=== PATIENT | male | born 1965 | race Caucasian/White ===

== ENCOUNTER → 2020-02-02 | Outpatient (CLI) | payer MEDICARE ==
[~2020-02-02] MED LIST: ASA81BEC PO; CIPRO500 M1 PO; DILAUDID 2 MG TA2 MG PO; FLAGYL500 MG PO; FLOMAX0.4 MG PO; MS CONTIN15 MG PO; NARCAN4 MG NARES; NEURONTIN100 MG PO; PRILOSEC 20 MG20 MG PO; PROZAC20 MG PO; SIMVASTATIN40 MG PO; ZYRTEC10 M4 PO
--- NOTE | 2020-02-24 08:28 | PAINCON ---
[address] [address] PAIN MANAGEMENT CONSULTATION Name: ERASMO CAMERON JR Room: [facility] Sidra#: [id number] Admission: 02/02/20 Attend Phys: Moreno Ervin MD Discharge: Date of : 65 Report #: [id number] THIS REPORT FOR: //name// cc: Aakash Morris MD, David M. MD ~ THIS REPORT FOR: //name// CC: Aakash Ervin DATE OF SERVICE: 02/02/2020 CHIEF COMPLAINT: Low back pain. HISTORY: The patient is a 54-year-old gentleman who has been referred to the pain clinic for evaluation of low back and leg pain. He finds it is difficult to sleep on his hips on his side. Pain is more problematic on the left hip area than the right. He has been using gabapentin, which has decreased some of the burning. He does have a history of scoliosis. The patient has been on a regimen of morphine and Dilaudid, which have been helpful. He has been on a regimen of pain medications to control his discomfort since 2000. He had a fusion of his low back area because of scoliosis in 1982. He has Will rods placed. In 1998, one of the rods broke. He then had additional surgery. Had another fusion in 2000. Continues to have some pain in his back and notes some weakness in his legs. He feels that the pain medications are helpful. He feels his pain is about 50-60% improved with his current regimen. Does note that activity as well as changes in the weather can exacerbate his discomfort. He finds that use of his medications in conjunction with rest are beneficial. He is not having any significant problems with bowel or bladder function. He has had a reduction in his opioid daily dose. He has noticed some increased discomfort since that decrease in medication, but still finds his pain tolerable. He describes it as steady, periodic, burning, cramping, aching, pulling, intermittent, gnawing and sharp. Rates his pain as a 3-4/10 today. Oftentimes, it averages 5-7 depending on his activity level. The patient feels that his medications are helpful. He would like to continue with them at this juncture. He is aware of the changing guidelines with the CDC regarding chronic use of opioid medications. ALLERGIES: No known drug allergies. CURRENT MEDICATIONS: Dilaudid 4 mg b.i.d. to t.i.d., morphine decreased from 100 mg b.i.d. about 3 months ago to 60 mg b.i.d., gabapentin 300 mg b.i.d., simvastatin 40 mg, fluoxetine 20 mg, 81 mg aspirin, PAST MEDICAL HISTORY: Acute pancreatitis in the past, alcoholism, hematuria, colitis, enlarged prostate, [place] [address] PAIN MANAGEMENT CONSULTATION Name: ERASMO CAMERON JR Room: [facility]#: [id number] Admission: 02/02/20 Attend Phys: Moreno Ervin MD Discharge: Date of : 65 Report #: [id number] PAST SURGICAL HISTORY: Back fusion with hardware 2000, back surgery with removal of broken margarita 1998, hardware with fusion of the spine 1982, tonsillectomy, left hand surgery, left eye surgery. Tonsil and ear tubes 1969, 1991 eye injury to the lid with tear of the tears ducts, 1995 hand injury of left index finger. REVIEW OF SYSTEMS: Generally good health, fever, night sweats, fatigue, weakness, eye injury, wears glasses, blurred vision, chronic sinus problems, shortness of breath when walking, constipation, frequent urination, past transfusions, memory loss, depression, insomnia, head injury, numbness and tingling sensation, difficulty walking, back pain, muscle pain, cramping, weakness of muscles and joints, excessive thirst. LABORATORY DATA: No new laboratory values are available at the time of our interview. PAIN CLINIC ASSESSMENT AND PQRS: 1. Height 5 feet 9 inches, weight 183 pounds, BMI is 27.3. 2. Vital signs: Blood pressure 118/63, heart rate 119, respiratory rate 18, room air saturation is 90%, temperature 98.2. 3. Osteoarthritic changes involving his back with numerous surgeries. 4. The patient is not being treated for rheumatoid arthritis. 5. Pain intensity, 3-4/10. 6. Fall history. The patient has not fallen in the last 3 months. 7. Blood thinner. The patient is not on a blood thinning medication. 8. Hypertension. The patient is not being treated for hypertension. 9. Opioids greater than 6 weeks. The patient receives medication from one source, his primary physician. 10. Risk assessment tool, moderate for opioid use. 11. Functional assessment tool, 35/70 showing moderate impact of pain in his daily life. PHYSICAL EXAMINATION: GENERAL: The patient is alert and oriented x 3. His affect is appropriate. Speech is fluent. HEENT: Normocephalic, atraumatic. Extraocular eye muscles intact. Sclerae nonicteric. Mucous membranes are moist. NECK: Without adenopathy or JVD. HEART: Regular rate. LUNGS: Clear. ABDOMEN: Nontender. MUSCULOSKELETAL: Upper extremity muscle strength judged to be 5/5 for the major muscle groups in the upper extremity. The patient has an incision from about the mid back to the lower portion of his lumbar spine. It is well healed. [facility] [address] [place] [address] PAIN MANAGEMENT CONSULTATION Name: ERASMO CAMERON JR Room: [facility]#: [id number] Admission: 02/02/20 Attend Phys: Moreno Ervin MD Discharge: Date of : 65 Report #: [id number] There is little movement in this area. Lower extremity muscle strength judged to be 5/5 for the major muscle groups in the lower extremity. Left lateral bending, right lateral bending, lumbar extension are all significantly limited secondary to the patient's fusion and rods in the lumbar spine. The patient states that he had a curvature of about 60 and 26 in the thoracic area, 20 degrees in the lumbar area before his surgery. IMPRESSION: 1. Chronic pain, status post 3 back surgeries with rods and screws placed to stabilize the spine. 2. Acute pancreatitis in the past. 3. Alcoholism. 4. Hematuria. 5. Colitis. RECOMMENDATIONS: We discussed the treatment with the patient. Again, we reviewed the CDC rules. The CDC would like the patient to be in the range of 90, morphine equivalents per day. That is a goal to shoot at. The patient has had a decrease in his morphine equivalents. He was at approximately 250 morphine equivalents about 3 months ago prior to decreasing his morphine from 100 mg daily b.i.d. to 60 mg daily. His total morphine equivalents at this juncture has been 60 mg morphine b.i.d. and 12 mg hydromorphone and up to about 168 morphine equivalents. Hydromorphone version into morphine is 4 times the milligrams that would make 4 x 12 48 mg and 1 morphine equivalent per mg, which would be 120, adding together would be 168 mg. I would recommend that the patient does have a Narcan spray. The Narcan comes in an injectable form, which would be screwed in his nose should there be respiratory depression. We also explained to the patient that other family members could possibly get hold of his medications. Should he find that another family member appeared to be having some respiratory problems and he had the belief that they had taken his medication, he would use the Narcan spray for them. The patient is aware that his medication should be locked up at all times. States that he does keep his medications in a guarded area. I would think at this point that his medications seem to be working reasonably well. There is no question that if he also has continued to have more discomfort as one, would decrease his opioid use. Over a period of time, I think approaching 120 mg of morphine if he is able to tolerate it, would be a goal. There were no set amounts of medications for the patients, but the CDC has set a goal of lower than 90 mg if the patient is able to function at that level. We have patients on the contracts indicating that they will take their medications as prescribed. One of our requirements is that the patient not drinks. The patient states that he drinks 1-2 alcoholic beverages per day. We would strongly recommend that he not drink on a regular basis. I think at this current level, one could continue with his current medical regimen. If he should have any concerns, we can see the patient again in the pain clinic [address] [address] PAIN MANAGEMENT CONSULTATION Name: ERASMO CAMERON JR [facility] [id number] Admission: 02/02/20 Attend Phys: Moreno Ervin MD Discharge: Date of : 65 Report #: [id number] in the future. We would like to thank you for letting us participate in his care. We hope he continues to improve. <ELECTRONICALLY SIGNED> By: Moreno Ervin MD 02/24/20 0828 0032 [id number]. Geoff Ervin MD /[facility]
== END ==
LOC: M.PC 09:13
DX: G89.29 Other chronic pain (principal); R31.9 Hematuria, unspecified; K52.9 Noninfective gastroenteritis and colitis, unspecified; F10.20 Alcohol dependence, uncomplicated; Z79.891 Long term (current) use of opiate analgesic

== ENCOUNTER → 2021-02-08 | Outpatient (CLI) | payer MEDICARE ==
[~2021-02-08] MED LIST changes: +COREG6.25 MG PO; +COZAAR 50 MG TA50 M1 PO; +LASIX 20 MG TAB20 MG PO; +PROTONIX40 M2 PO; +SPIRONOLACTONE25 MG PO
[2021-02-08 12:24] LABS: CALCIUM 9.8 mg/dL (8.5-10.1); CREATININE 0.9 mg/dL (0.6-1.3); POTASSIUM 4.1 mmol/L (3.5-5.1)
== END ==
LOC: M.LAB 12:00
PROVIDERS: ATTEND Registered Nurse
DX: I50.23 Acute on chronic systolic (congestive) heart failure (principal)

== ENCOUNTER → 2021-02-19 | Outpatient (CLI) | payer MEDICARE ==
--- NOTE | 2021-03-12 08:43 | SLEEP ---
[address] [address] SLEEP STUDY REPORT Name: ERASMO CAMERON JR Room: [facility]#: [id number] Admission: 02/19/21 Attend Phys: Tommy Du MD Discharge: Date of : 65 Report #: [id number] THIS REPORT FOR: cc: Aakash Morris MD, David M. MD Pervez,Tommy KING ~ This study has been reviewed in its entirety by a board certified sleep specialist DATE OF SERVICE: 02/19/2021 SLEEP STUDY INDICATION FOR SLEEP STUDY: Obstructive sleep apnea, recently diagnosed based on a home sleep study performed through [facility]. This sleep study is being performed for positive airway pressure titration. INTERPRETATION: Total duration of the study is 429 minutes. During this time duration, the patient was asleep for 353 minutes with an overall sleep efficiency of 82%. Sleep onset initially occurred 6 minutes after lying down in bed and REM onset occurred 151 minutes after sleep onset. N1 sleep duration was 6%, N2 duration was 36%, N3 duration is 13%, and REM duration was 43%. Mean heart rate during the sleep study was 94. Periodic limb movement index was elevated to 44.6. Most limb movements, however, are not associated with arousals. Periodic limb movement index with arousals was 3.4. Overall, arousal index was mildly elevated to 23. This is a CPAP titration. Review of the CPAP titration indicates the patient was titrated beginning with a CPAP pressure of 5 cm of water, gradually increasing it to 11 cm of water. With the administration of a CPAP of 11 cm of water, there is marked improvement in the patient's sleep apnea noted. O2 saturation is also mostly maintained at or above 88%. Occasional desaturation come up to 86% and occasional hypopneas, however, continued to occur and complete correction of the patient's sleep disordered respiration was not noted. The patient is also noted, based on the body position data, lying either on the right or left side throughout the sleep study. There is essentially no supine sleep recorded. IMPRESSION: Obstructive sleep apnea diagnosed based on a recent home sleep study through [facility]. During the sleep study, there is marked improvement noted with the administration of a CPAP of 11 cm of water. Complete correction of the patient's sleep disordered respirations, however, [place] [address] SLEEP STUDY REPORT Name: ERASMO CAMERON JR Room: [facility]#: [id number] Admission: 02/19/21 Attend Phys: Tommy Du MD Discharge: Date of : 65 Report #: [id number] occur. There are occasional hypopneas still occurring. There are occasional desaturations up to 86% also still occurring. There is periodic limb movement disorder noted. Most limb movements, however, are not associated with arousals. RECOMMENDATIONS: 1. I recommend placing the patient on a CPAP of 11 cm of water with heated humidity and mask per the patient's preference while asleep. During the sleep study, a ResMed AirFit F20 full face mask, size medium, with a C-Flex of 3 was used. 2. Once the patient has become accustomed to the use of CPAP, I will plan to perform a nocturnal pulse oximetry with the CPAP in place to verify that O2 saturation is adequately maintained with the CPAP in place. 3. In case the patient is not adequately controlled with this CPAP therapy, then I will plan in a few months to bring the patient back to the Sleep Lab and repeat a positive airway pressure titration in the lab later on. 4. Recommend avoiding use of alcohol. 5. Recommend continuing to sleep on sides and avoid sleeping supine. 6. Recommend avoiding driving or other activities requiring vigilance if drowsy. This entire sleep study was reviewed by board certified sleep physician. <ELECTRONICALLY SIGNED> By: Tommy Du MD 03/12/21 0843 [id number] 2014Ayvonne Du MD /nt
== END ==
LOC: M.SLEEPLAB 20:55
PROVIDERS: ATTEND Internal Medicine Critical Care Medicine
DX: G47.33 Obstructive sleep apnea (adult) (pediatric) (principal); I50.9 Heart failure, unspecified

== ENCOUNTER 2021-03-20 10:43 | Inpatient (IN) | payer MEDICARE ==
[~2021-03-20] VITALS: Ht 175.3 cm; Wt 77.1 kg
[2021-03-20 10:51] VITALS: BP 107/74
[2021-03-20] MEDS ORDERED: POTASSIUM600 MG PO (10:56)
[2021-03-20] MEDS ORDERED: PROAIR HFA8.5 GM INH (10:57)
[2021-03-20] MEDS ORDERED: INCRUSE ELLI62.5 MCG INH (10:58)
[2021-03-20 11:11] LABS: ICTOTEST (BILI CONFIRMATORY) Negative (Negative); URINE BILIRUBIN 1+ (Negative); URINE BLOOD NEGATIVE (Negative); URINE CLARITY CLEAR; URINE COLOR YELLOW; URINE GLUCOSE-RANDOM NEGATIVE (Negative); URINE KETONES 1+ (Negative); URINE LEUKOCYTES-REFLEX NEGATIVE (Negative); URINE NITRITE-REFLEX NEGATIVE (Negative); URINE PROTEIN 1+ (Negative)
[2021-03-20 11:19] LABS: BACTERIA-REFLEX 1-9 Few /HPF (None Seen); CASTS None Seen /LPF (None Seen); CRYSTALS None Seen /LPF (None Seen); SQUAMOUS 0-3 Few /LPF (0-3); URINE RBC 0-2 Rare /HPF (0-2); URINE WBC-REFLEX 0-5 Rare /HPF (0-5)
[2021-03-20 11:22] LABS: ABSOLUTE LYMPHOCYTES 0.6 thou/uL (0.8-5.3); ABSOLUTE MONOCYTES 1.1 thou/uL (0.0-1.2); ABSOLUTE NEUTROPHILS 6.6 thou/uL (1.6-8.1); BASOPHILS 0.6 %; EOSINOPHILS 0.5 %; HEMOGLOBIN 16.5 gm/dL (14.0-18.0); LYMPHOCYTES 6.9 %; MCH 30.6 pg (26.0-34.0); MCHC 33.7 g/dL (28.0-37.0); MPV 6.8 fl. (7.2-11.1); NUCLEATED RBCS 0 /100WBC; PLATELET COUNT* 227 thou/uL (150-400); RBC 5.38 mil/uL (4.50-6.00); RDW-CV 14.6 % (10.5-14.5); WBC 8.4 thou/uL (4.0-11.0)
[2021-03-20 11:32] LABS: CALCIUM 9.1 mg/dL (8.5-10.1); CREATININE 0.5 mg/dL (0.6-1.3); POTASSIUM 3.1 mmol/L (3.5-5.1)
[2021-03-20 11:37] LABS: ALBUMIN 3.7 g/dL (3.4-5.0); TOTAL BILIRUBIN 0.9 mg/dL (<0.1-1.0); TOTAL PROTEIN 7.6 g/dL (6.4-8.2)
[2021-03-20 17:00] VITALS: BP 126/80
[2021-03-20 17:34] VITALS: BP 126/80
[2021-03-20 17:45] VITALS: BP 119/91
--- NOTE | 2021-03-20 18:12 | NUR ---
1745 PT RECEIVED TO 203 PER CART FROM ER ACCOMPANIED BY MOTHER. ORIENTED TO ROOM AND HOSPITAL. PT IS NPO.
[2021-03-20 20:00] VITALS: BP 132/85
[2021-03-20 23:55] VITALS: BP 123/79
--- NOTE | 2021-03-21 01:06 | NUR ---
PT ALERT ORIENTED ANXIOUS. CIWA SCORE 8 AND 9. ATIVAN GIVEN. FENTANYL GIVEN FOR ABD PAIN. PT STATED THAT FENTANYL DID NOT HELP WITH PAIN. PT IS ON MS CONTINE ER 15MG Q 12HR AT HOME. DR MARTINEZ NOTIFIED AND PT PLACED BACK ON MS CONTINUE. ALSO AN INCREASE IN FENTANYL DOSE. PT RESTING COMFORTABLY. TELEMETRY SHOWS SR.
[2021-03-21 04:30] LABS: HEMOGLOBIN 14.8 gm/dL (14.0-18.0); MCH 30.6 pg (26.0-34.0); MCHC 32.9 g/dL (28.0-37.0); MCV 93.1 fL (80.0-100.0); MPV 7.1 fl. (7.2-11.1); PLATELET COUNT* 191 thou/uL (150-400); RBC 4.83 mil/uL (4.50-6.00); RDW-CV 15.3 % (10.5-14.5); WBC 6.5 thou/uL (4.0-11.0)
[2021-03-21 04:42] VITALS: BP 116/82
[2021-03-21 04:46] LABS: ALBUMIN 3.1 g/dL (3.4-5.0); CALCIUM 8.2 mg/dL (8.5-10.1); CREATININE 0.5 mg/dL (0.6-1.3); MAGNESIUM 1.4 mg/dL (1.8-2.4); TOTAL BILIRUBIN 1.2 mg/dL (<0.1-1.0); TOTAL PROTEIN 6.5 g/dL (6.4-8.2)
[2021-03-21 07:54] VITALS: BP 125/86
[2021-03-21 11:49] LABS: ABSOLUTE EOSINOPHILS 0.4 thou/uL (0.0-0.7); ABSOLUTE LYMPHOCYTES 0.9 thou/uL (0.8-5.3); ABSOLUTE NEUTROPHILS 4.1 thou/uL (1.6-8.1); BASOPHILS 0.7 %; EOSINOPHILS 6.5 %; LYMPHOCYTES 14.2 %; MONOCYTES 15.1 %; POLYS 63.5 %
[2021-03-21 11:56] VITALS: BP 132/91
--- NOTE | 2021-03-21 12:32 | NUR ---
Pt is A&O. Resides at home. Independent. No DME. No hx of HH or SNF. Goal is home at dc, no needs anticipated. Plan to replete electrolytes today, anticipate dc in a few days.
[2021-03-21 15:59] LABS: CALCIUM 8.9 mg/dL (8.5-10.1); CREATININE 0.4 mg/dL (0.6-1.3); MAGNESIUM 1.8 mg/dL (1.8-2.4); POTASSIUM 3.5 mmol/L (3.5-5.1)
[2021-03-21 17:35] VITALS: BP 131/95
--- NOTE | 2021-03-21 18:19 | NUR ---
TREAT CIWA SCORE WITH ATIVAB AND PT REMAINS NPO. CONTINUE CURRENT PLAN OF CARE.
[2021-03-21 20:00] VITALS: BP 125/53
[2021-03-22] VITALS: BP 147/92
--- NOTE | 2021-03-22 03:15 | NUR ---
PT SLEEPY EASILY AROUSABLE ORIENTED X 4. MS CONTIN (SCHEDULED) AND FENTNEYL PRN FOR PAIN. O2 AT 2 LITERS NC. 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 CIWA 2. NS AT 200MLS/HR.
[2021-03-22 03:52] LABS: ALBUMIN 3.1 g/dL (3.4-5.0); CALCIUM 8.7 mg/dL (8.5-10.1); CREATININE 0.4 mg/dL (0.6-1.3); POTASSIUM 3.2 mmol/L (3.5-5.1); TOTAL BILIRUBIN 1.5 mg/dL (<0.1-1.0); TOTAL PROTEIN 6.7 g/dL (6.4-8.2)
[2021-03-22 04:00] VITALS: BP 143/92
[2021-03-22 10:28] VITALS: BP 143/92
--- NOTE | 2021-03-22 11:21 | 2DMMODE ---
[place] [address] 2 D/M-MODE ECHOCARDIOGRAM Name: ERASMO CAMERON JR Room: [address] IN [facility]#: [id number] Admission: 03/20/21 Attend Phys: Rony Baker, Discharge: Date of : 65 Date of Service: 03/22/21 1121 Report #: [id number] THIS REPORT FOR: cc: Aakash Morris MD, David M. MD Holkins,Ravindra Espinoza MD [facility] ~ APPROVED REPORT Study performed: 03/21/2021 15:30:05 EXAM: Comprehensive 2D, Doppler, and color-flow Echocardiogram Patient Location: In-Patient Room #: [facility] Status: routine BSA: 1.93 HR: 100 bpm BP: 132/91 mmHg Rhythm: NSR Other Information Study Quality: Good Indications Congestive Heart Failure 2D Dimensions IVSd: 10.99 (7-11mm) LVOT Diam: 22.11 (18-24mm) LVDd: 58.05 mm PWd: 8.27 (7-11mm) Ascending Ao: 31.85 (22-36mm) LVDs: 53.49 (25-40mm) Aortic Root: 37.45 mm Volumes Left Atrial Volume (Systole) LA ESV Index: 33.30 mL/m2 Aortic Valve AoV Peak Negrito.: 1.11 m/s AO Peak Gr.: 4.95 mmHg LVOT Max P.31 mmHg AO Mean Gr.: 3.03 mmHg LVOT Mean P.21 mmHg LVOT Max V: 0.76 m/s AO V2 VTI: 15.35 cm LVOT Mean V: 0.51 m/s LURDES (VTI): 2.74 cm2 LVOT V1 VTI: 10[place] [address] 2 D/M-MODE ECHOCARDIOGRAM Name: ERASMO CAMERON JR Room: [address] ..#: [id number] Admission: 03/20/21 Attend Phys: Rony Baker, Discharge: Date of : 65 Date of Service: 03/22/21 1121 Report #: [id number] TDI Lateral E' Negrito.: 0.08 m/s Pulmonary Valve PV Peak Negrito.: 0.76 m/s PV Peak Gr.: 2.33 mmHg Left Ventricle Left ventricle is mildly dilated. There is global hypokinesis of the left ventricle. There is normal left ventricular wall thickness. Left ventricular ejection fraction is moderate to severely decreased. LVEF is 25-30%. Grade I - abnormal relaxation pattern. Right Ventricle The right ventricle is normal size. The right ventricular systolic function is normal. Atria The left atrium size is normal. The right atrium size is normal. Aortic Valve The aortic valve is normal in structure. No aortic regurgitation is present. There is no aortic valvular stenosis. Mitral Valve The mitral valve is normal in structure. Trace mitral regurgitation. No evidence of mitral valve stenosis. Tricuspid Valve The tricuspid valve is normal in structure. Trace tricuspid regurgitation. Pulmonic Valve The pulmonary valve is normal in structure. There is no pulmonic valvular regurgitation. Great Vessels The aortic root is normal in size. IVC is normal in size and collapses >50% with inspiration. Pericardium There is no pericardial effusion. <Conclusion> Left ventricle is mildly dilated. There is normal left [place] [address] 2 D/M-MODE ECHOCARDIOGRAM Name: ERASMO CAMERON JR Room: [address]#: [id number] Admission: 03/20/21 Attend Phys: Rony Baker, Discharge: Date of : 65 Date of Service: 03/22/21 1121 Report #: [id number] Left ventricular ejection fraction is moderate to severely decreased. LVEF is 25-30%. Grade I - abnormal relaxation pattern. The right ventricle is normal size. The left atrium size is normal. The aortic valve is normal in structure. The mitral valve is normal in structure. The tricuspid valve is normal in structure. IVC is normal in size and collapses >50% with inspiration. There is no pericardial effusion. There is global hypokinesis of the left ventricle. <ELECTRONICALLY SIGNED> By: Ravindra Chowdhury MD, FACC 03/22/21 112 112 112 Ravindra Chowdhury MD, FACC /INF
--- NOTE | 2021-03-22 13:35 | NUR ---
Pt may leave ama, if not anticipate dc in a few days.
--- NOTE | 2021-03-22 16:31 | NUR ---
CONTACT DR. NORRIS TO INFORM THAT PT WISHES TO LEAVE HOSPITAL AMA. SHE INFORMED ME THAT IT WAS OK BUT PT IS TO HAVE SOMEONE COME AND PICK HIM UP AND NOT DRIVE. DC IV AND TELE. PT'S RIDE IS HERE AND PT AMA AT 1640.
== END 2021-03-22 16:40 | disposition left against medical advice (07) | DRG 439 ==
LOC: M.ERS 10:43 → M.TBA-ER 12:34 → M.2W 12:34 → M.TBA-ER 13:01 → M.2W 17:36
PROVIDERS: Internal Medicine; Nurse Practitioner Family; ADMIT Internal Medicine; ATTEND Internal Medicine
DX: K85.21 Alcohol induced acute pancreatitis with uninfected necrosis (principal); E44.0 Moderate protein-calorie malnutrition; E87.1 Hypo-osmolality and hyponatremia; F10.239 Alcohol dependence with withdrawal, unspecified; Z20.822 Contact with and (suspected) exposure to COVID-19; F17.210 Nicotine dependence, cigarettes, uncomplicated; E78.5 Hyperlipidemia, unspecified; E87.6 Hypokalemia; E83.42 Hypomagnesemia; E86.9 Volume depletion, unspecified; F10.229 Alcohol dependence with intoxication, unspecified; G89.29 Other chronic pain; Z79.891 Long term (current) use of opiate analgesic; Z53.29 Procedure and treatment not carried out because of patient's decision for other reasons; Z68.25 Body mass index [BMI] 25.0-25.9, adult

== ENCOUNTER → 2021-04-25 | Outpatient (CLI) | payer MEDICARE ==
[~2021-04-25] MED LIST changes: +INCRUSE ELLI62.5 MCG INH; +POTASSIUM600 MG PO; +PROAIR HFA8.5 GM INH
[2021-04-25 11:25] LABS: CREATININE 0.5 mg/dL (0.6-1.3)
--- NOTE | 2021-05-06 15:22 | PF ---
[address] [address] PULMONARY FUNCTION REPORT Name: ERASMO CAMERON JR Room: [facility]#: [id number] Admission: 04/25/21 Attend Phys: Tommy Du MD Discharge: Date of : 65 Report #: [id number] THIS REPORT FOR: cc: Aakash Morris MD, David M. MD Pervez,Tommy KING ~ DOC #: [id number] Tommy Du MD DATE OF VISIT: 04/25/2021 PULMONARY FUNCTION TEST The FEV1/FVC ratio is decreased to 57% with an FVC normal at 92%. FEV1 is decreased to 68%. FEF 25-75 is also decreased to 29%. After the administration of a bronchodilator, there is no significant increase in any of these values. The patient's post-bronchodilator FEV1 is 2.49 liters. The patient's flow volume loop is concave upwards. LUNG VOLUMES: The total lung capacity is normal at 100%, residual volume while within the normal range, close to the upper limit of normal range at 114%. The DLCO as adjusted for hemoglobin is decreased to 56%. IMPRESSION: 1. Moderate obstruction without evidence of reversibility. 2. Lung volumes are normal, but the residual volume is close to the upper limit of normal range, likely due to underlying obstruction. 3. DLCO decreased to 56% as adjusted for hemoglobin. MD ANGELIQUE Rivera/KEN <ELECTRONICALLY SIGNED> By: Tommy Du MD 05/06/21 1522 0614 0829Tommy Du MD /nt
== END ==
LOC: M.LAB 02-28 15:11 → M.CT 03-28 11:30 → M.PUL 03-28 12:00 → M.LAB 10:58
PROVIDERS: ATTEND Internal Medicine Critical Care Medicine
DX: J43.9 Emphysema, unspecified (principal); K86.89 Other specified diseases of pancreas; K76.0 Fatty (change of) liver, not elsewhere classified; M40.294 Other kyphosis, thoracic region; M47.814 Spondylosis without myelopathy or radiculopathy, thoracic region; I50.22 Chronic systolic (congestive) heart failure

== ENCOUNTER → 2021-05-23 | Outpatient (CLI) | payer MEDICARE ==
[2021-05-23 14:33] LABS: ALBUMIN 3.6 g/dL (3.4-5.0); CALCIUM 9.2 mg/dL (8.5-10.1); CREATININE 1.1 mg/dL (0.6-1.3); POTASSIUM 4.2 mmol/L (3.5-5.1); TOTAL BILIRUBIN 0.7 mg/dL (<0.1-1.0); TOTAL PROTEIN 7.7 g/dL (6.4-8.2)
== END ==
LOC: M.LAB 14:07
PROVIDERS: ATTEND Registered Nurse
DX: I42.0 Dilated cardiomyopathy (principal)

== ENCOUNTER → 2021-06-11 | Outpatient (CLI) | payer MEDICARE ==
[2021-06-11 10:49] LABS: CREATININE 0.7 mg/dL (0.6-1.3); POTASSIUM 4.8 mmol/L (3.5-5.1)
[2021-06-11 14:44] LABS: AMYLASE 25 U/L (25-115); LIPASE 250 U/L (73-393)
== END ==
LOC: M.LAB 10:29
PROVIDERS: ATTEND Registered Nurse
DX: I42.0 Dilated cardiomyopathy (principal); I50.42 Chronic combined systolic (congestive) and diastolic (congestive) heart failure; R10.9 Unspecified abdominal pain

== ENCOUNTER 2021-07-03 17:14 | Emergency (ER) | payer MEDICARE ==
[~2021-07-03] VITALS: Ht 175.3 cm; Wt 75.8 kg
[2021-07-03] MEDS ORDERED: ENTRESTO 24 MG1 EACH PO (17:21)
[2021-07-03] MEDS ORDERED: DILAUDID1 MG/1 M1 PO (17:22)
[2021-07-03 18:07] LABS: ABSOLUTE BASOPHILS 0.1 thou/uL (0.0-0.2); ABSOLUTE EOSINOPHILS 0.4 thou/uL (0.0-0.7); ABSOLUTE LYMPHOCYTES 1.4 thou/uL (0.8-5.3); ABSOLUTE NEUTROPHILS 3.5 thou/uL (1.6-8.1); BASOPHILS 1.4 %; EOSINOPHILS 6.1 %; HEMATOCRIT 42.2 % (42.0-52.0); HEMOGLOBIN 14.6 gm/dL (14.0-18.0); LYMPHOCYTES 22.2 %; MCH 32.1 pg (26.0-34.0); MCHC 34.5 g/dL (28.0-37.0); MCV 92.9 fL (80.0-100.0); MONOCYTES 15.3 %; MPV 6.1 fl. (7.2-11.1); NUCLEATED RBCS 0 /100WBC; PLATELET COUNT* 258 thou/uL (150-400); RBC 4.54 mil/uL (4.50-6.00); RDW-CV 15.5 % (10.5-14.5); WBC 6.3 thou/uL (4.0-11.0)
[2021-07-03 18:17] LABS: ANION GAP 5 mmol/L (7-16); BUN 5 mg/dL (7-18); CALCIUM 8.8 mg/dL (8.5-10.1); CHLORIDE 93 mmol/L (98-107); CO2 32 mmol/L (21-32); CREATININE 0.6 mg/dL (0.6-1.3); GLUCOSE 112 mg/dL (70-99); POTASSIUM 3.6 mmol/L (3.5-5.1); SODIUM 130 mmol/L (136-145)
[2021-07-03 18:29] LABS: ALBUMIN 4.1 g/dL (3.4-5.0); ALKALINE PHOSPHATASE 165 U/L (46-116); CK-MB MASS < 0.5 ng/mL (<0.5-3.6); LIPASE 227 U/L (73-393); MAGNESIUM 1.3 mg/dL (1.8-2.4); NT-PRO BRAIN NAT PEPTIDE 190 pg/mL (<300); SGOT 192 U/L (15-37); SGPT 141 U/L (30-65); TOTAL BILIRUBIN 0.9 mg/dL (<0.1-1.0); TOTAL PROTEIN 7.7 g/dL (6.4-8.2)
[2021-07-03 18:36] VITALS: BP 128/91
[2021-07-03] MEDS ORDERED: ZOFRAN ODT4 MG DISSOLVE (18:39)
[2021-07-03] MEDS ORDERED: VENTOLIN HFA 1818 GM INH (18:39)
--- NOTE | 2021-07-04 11:39 | EKG ---
[place] [address] ELECTROCARDIOGRAM REPORT Name: ERASMO CAMERON JR Room: [facility]#: [id number] Admission: 07/03/21 Attend Phys: Discharge: 07/03/21 Date of : 65 Date of Service: 07/03/21 1717 Report #: [id number] THIS REPORT FOR: //name// [facility] ED Test Date: 2021-07-03 Test Time: 17:17:21 Pat Name: ERASMO CAMERON Department: Room: Gender: Pizzamaker: IVAN : 1965 Requested By: Janes Stratton Order Number: [id number] MD: Boone Wyatt Measurements Intervals Dubois Rate: 79 P: 56 ID: [id number] QRS: 52 QRSD: 114 T: 36 QT: 415 QTc: 476 Interpretive Statements Sinus rhythm Incomplete right bundle branch block Borderline prolonged QT interval Compared to ECG 01/29/2021 14:35:04 Incomplete right bundle-branch block now present Sinus tachycardia no longer present Nonspecific ST-T abnormalities are now present Electronically Signed On 07-04-2021 11:39:39 CDT by Boone Wyatt [email or web address] <ELECTRONICALLY SIGNED> By: Naldo Wyatt MD, [facility] 07/04/21 1139 16 16 Naldo Wyatt MD, [facility] /EPI
== END 2021-07-03 18:46 | disposition home or self-care (01) ==
LOC: M.ERS 17:14
PROVIDERS: Family Medicine
DX: R06.00 Dyspnea, unspecified (principal); I50.9 Heart failure, unspecified; Z79.899 Other long term (current) drug therapy; Z90.89 Acquired absence of other organs

== ENCOUNTER → 2021-07-29 | Outpatient (CLI) | payer MEDICARE ==
[~2021-07-29] MED LIST changes: +DILAUDID1 MG/1 M1 PO; +ENTRESTO 24 MG1 EACH PO; +VENTOLIN HFA 1818 GM INH; +ZOFRAN ODT4 MG DISSOLVE
--- NOTE | 2021-07-29 15:39 | 2DMMODE ---
[place] [address] 2 D/M-MODE ECHOCARDIOGRAM Name: ERASMO CAMERON JR Room: [facility]#: [id number] Admission: 07/29/21 Attend Phys: Marci Alvarez RN Discharge: Date of : 65 Date of Service: 07/29/21 1539 Report #: [id number] THIS REPORT FOR: cc: Aakash Morris MD, David M. MD Blick, David R. MD [facility] ~ APPROVED REPORT Study performed: 07/29/2021 12:18:34 EXAM: Comprehensive 2D, Doppler, and color-flow Echocardiogram BSA: 1.91 HR: 87 bpm BP: 120/70 mmHg Other Information Study Quality: Good Indications Cardiomyopathy 2D Dimensions IVSd: 11.18 (7-11mm) LVOT Diam: 22.87 (18-24mm) LVDd: 47.37 mm PWd: 10.14 (7-11mm) Ascending Ao: 36.44 (22-36mm) LVDs: 40.09 (25-40mm) Aortic Root: 31.20 mm Volumes Left Atrial Volume (Systole) LA ESV Index: 13.40 mL/m2 Aortic Valve AoV Peak Negrito.: 1.19 m/s AO Peak Gr.: 5.71 mmHg LVOT Max P.18 mmHg AO Mean Gr.: 3.18 mmHg LVOT Mean P.48 mmHg LVOT Max V: 0.89 m/s AO V2 VTI: 21.42 cm LVOT Mean V: 0.55 m/s LURDES (VTI): 2.94 cm2 LVOT V1 VTI: 15.31 cm Mitral Valve E/A Ratio: 1.07 MV Decel. Time: 273.50 [place] [address] 2 D/M-MODE ECHOCARDIOGRAM Name: ERASMO CAMERON JR Room: [facility]#: [id number] Admission: 07/29/21 Attend Phys: Marci Alvarez RN Discharge: Date of : 65 Date of Service: 07/29/21 1539 Report #: [id number] MV E Max Negrito.: 0.53 m/s MV PHT: 79.31 ms MVA (PHT): 2.77 cm2 TDI E/Lateral E': 4.82 E/Medial E': 4.82 Medial E' Negrito.: 0.11 m/s Lateral E' Negrito.: 0.11 m/s Pulmonary Valve PV Peak Negrito.: 0.89 m/s PV Peak Gr.: 3.20 mmHg Tricuspid Valve RAP Estimate: 5.00 mmHg TR Peak Gr.: 25.85 mmHg RVSP: 30.85 mmHg PA Pressure: 30.85 mmHg Left Ventricle The left ventricle is normal size. There is normal LV segmental wall motion. Borderline concentric left ventricular hypertrophy. Left ventricular systolic function is normal. The left ventricular ejection fraction is within the normal range. LVEF is 50-55%. Right Ventricle The right ventricle is normal size. The right ventricular systolic function is normal. Atria The left atrium size is normal. The right atrium size is normal. Aortic Valve The aortic valve is normal in structure. No aortic regurgitation is present. There is no aortic valvular stenosis. Mitral Valve The mitral valve is normal in structure. Trace mitral regurgitation. No evidence of mitral valve stenosis. Tricuspid Valve The tricuspid valve is normal in structure. Trace tricuspid regurgitation. Pulmonic Valve The pulmonary valve is normal in structure. There is no pulmonic valvular regurgitation. [place] [address] 2 D/M-MODE ECHOCARDIOGRAM Name: ERASMO CAMERON JR Room: [facility]#: [id number] Admission: 07/29/21 Attend Phys: Marci Alvarez RN Discharge: Date of : 65 Date of Service: 07/29/21 1539 Report #: [id number] Great Vessels The aortic root is normal in size. IVC is normal in size and collapses >50% with inspiration. Pericardium There is no pericardial effusion. <Conclusion> Borderline concentric left ventricular hypertrophy. LVEF is 50-55%. <ELECTRONICALLY SIGNED> By: Aakash Jiang MD, FACC 07/29/21 1539 1539 1539 Aakash Jiang MD, FAC /INF
== END ==
LOC: M.CRD 11:00
PROVIDERS: ATTEND Registered Nurse
DX: I42.0 Dilated cardiomyopathy (principal)

== ENCOUNTER → 2021-09-30 | Outpatient (CLI) | payer MEDICARE ==
[2021-09-30 10:36] LABS: CREATININE 1.4 mg/dL (0.6-1.3)
== END ==
LOC: M.LAB 10:00 → M.CT 11:00
PROVIDERS: ATTEND Internal Medicine Critical Care Medicine
DX: J43.8 Other emphysema (principal); J31.0 Chronic rhinitis; R59.0 Localized enlarged lymph nodes

== ENCOUNTER 2021-11-09 12:37 | Inpatient (IN) | payer MEDICARE ==
[~2021-11-09] VITALS: Ht 152.4 cm; Wt 70.3 kg
[2021-11-09 12:42] VITALS: BP 125/80
[2021-11-09] MEDS ORDERED: SINGULAIR 10 MG10 M1 PO (12:50)
[2021-11-09] MEDS ORDERED: MORPHINE SULFAT30 M1 PO (12:50)
[2021-11-09] MEDS ORDERED: ENTRESTO 24 MG1 EACH PO (12:50)
[2021-11-09] MEDS ORDERED: DILAUDID1 MG/1 M1 PO (12:51)
[2021-11-09 14:51] LABS: ICTOTEST (BILI CONFIRMATORY) Negative (Negative); URINE BILIRUBIN 1+ (Negative); URINE BLOOD NEGATIVE (Negative); URINE CLARITY CLEAR; URINE COLOR YELLOW; URINE GLUCOSE-RANDOM NEGATIVE (Negative); URINE KETONES 3+ (Negative); URINE LEUKOCYTES-REFLEX NEGATIVE (Negative); URINE NITRITE-REFLEX NEGATIVE (Negative); URINE PROTEIN 1+ (Negative)
[2021-11-09 15:21] LABS: ABSOLUTE EOSINOPHILS 0.1 thou/uL (0.0-0.7); ABSOLUTE MONOCYTES 1.2 thou/uL (0.0-1.2); ABSOLUTE NEUTROPHILS 6.6 thou/uL (1.6-8.1); BASOPHILS 0.5 %; EOSINOPHILS 1.5 %; HEMATOCRIT 49.6 % (42.0-52.0); HEMOGLOBIN 17.3 gm/dL (14.0-18.0); LYMPHOCYTES 11.6 %; MCH 35.5 pg (26.0-34.0); MCHC 34.9 g/dL (28.0-37.0); MCV 101.6 fL (80.0-100.0); MONOCYTES 13.5 %; MPV 6.4 fl. (7.2-11.1); NUCLEATED RBCS 0 /100WBC; PLATELET COUNT* 205 thou/uL (150-400); POLYS 72.9 %; RBC 4.88 mil/uL (4.50-6.00); RDW-CV 14.6 % (10.5-14.5)
[2021-11-09 15:30] LABS: CALCIUM 10.4 mg/dL (8.5-10.1); CREATININE 0.5 mg/dL (0.6-1.3); POTASSIUM 3.2 mmol/L (3.5-5.1)
[2021-11-09 15:41] LABS: ALBUMIN 3.6 g/dL (3.4-5.0); TOTAL PROTEIN 7.7 g/dL (6.4-8.2)
[2021-11-09 20:11] VITALS: BP 161/104
[2021-11-09 22:10] VITALS: BP 161/104
[2021-11-09 23:20] VITALS: BP 154/94
[2021-11-10 04:00] VITALS: BP 151/102
[2021-11-10 08:00] VITALS: BP 145/95
[2021-11-10 08:32] LABS: HEMATOCRIT 45.6 % (42.0-52.0); HEMOGLOBIN 15.5 gm/dL (14.0-18.0); MCH 34.6 pg (26.0-34.0); MCV 101.7 fL (80.0-100.0); MPV 6.4 fl. (7.2-11.1); RBC 4.48 mil/uL (4.50-6.00); RDW-CV 14.5 % (10.5-14.5); WBC 6.7 thou/uL (4.0-11.0)
[2021-11-10 08:46] LABS: ALBUMIN 2.9 g/dL (3.4-5.0); CALCIUM 8.8 mg/dL (8.5-10.1); CREATININE 0.6 mg/dL (0.6-1.3); POTASSIUM 3.3 mmol/L (3.5-5.1); TOTAL BILIRUBIN 0.9 mg/dL (<0.1-1.0); TOTAL PROTEIN 6.3 g/dL (6.4-8.2)
--- NOTE | 2021-11-10 10:43 | EKG ---
[place] [address] ELECTROCARDIOGRAM REPORT Name: ERASMO CAMERON JR Room: [address] ADM IN .R.#: [id number] Admission: 11/09/21 Attend Phys: Ami Gifford Discharge: Date of : 65 Date of Service: 11/09/21 1520 Report #: [id number] THIS REPORT FOR: //name// [facility] ED Test Date: 2021-11-09 Test Time: 15:20:15 Pat Name: ERASMO CAMERON Department: Room: [facility] Gender: M [employer] Digger: : 1965 Requested By: Messi Donald Order Number: [id number] MD: Aakash Jiang Measurements Intervals [place] Rate: 86 P: 43 MO: 147 QRS: 50 QRSD: 105 T: 59 QT: 398 QTc: 476 Interpretive Statements Sinus rhythm Consider left atrial enlargement RSR' in V1 or V2, probably normal variant Abnormal T, consider ischemia, anterior leads Compared to ECG 07/03/2021 17:17:21 no change Electronically Signed On 11-10-2021 10:43:15 [employer] by Aakash Jiang [email or web address] <ELECTRONICALLY SIGNED> By: Aakash Jiang MD, FACC 11/10/21 1043 1520 1520 Aakash Jiang MD, FACC /EPI
[2021-11-10 12:00] VITALS: BP 143/95
[2021-11-10 16:00] VITALS: BP 139/96
[2021-11-10 21:00] VITALS: BP 139/95
[2021-11-11 05:47] VITALS: BP 136/88
[2021-11-11 08:00] VITALS: BP 132/93; BP 141/94
[2021-11-11 16:00] VITALS: BP 148/94
[2021-11-11 20:00] VITALS: BP 153/101
[2021-11-12 00:41] VITALS: BP 136/95
[2021-11-12 04:37] VITALS: BP 129/78
[2021-11-12] MEDS ORDERED: PRENATAL PO (08:09)
[2021-11-12 08:36] VITALS: BP 120/92
[2021-11-12 08:43] VITALS: BP 120/92
[2021-11-12 12:00] VITALS: BP 147/98
== END 2021-11-12 13:20 | disposition home or self-care (01) | DRG 439 ==
LOC: M.ERS 12:37 → M.TBA-ER 16:11 → M.2W 16:11
PROVIDERS: Emergency Medicine Emergency Medical Services; Internal Medicine; Physician Assistant; ADMIT Internal Medicine; ATTEND Internal Medicine
DX: K85.20 Alcohol induced acute pancreatitis without necrosis or infection (principal); E87.1 Hypo-osmolality and hyponatremia; I50.22 Chronic systolic (congestive) heart failure; F11.20 Opioid dependence, uncomplicated; F10.139 Alcohol abuse with withdrawal, unspecified; E78.5 Hyperlipidemia, unspecified; F17.210 Nicotine dependence, cigarettes, uncomplicated; E86.0 Dehydration; N40.0 Benign prostatic hyperplasia without lower urinary tract symptoms; G89.29 Other chronic pain; Z20.822 Contact with and (suspected) exposure to COVID-19; E87.6 Hypokalemia; Z79.899 Other long term (current) drug therapy